=== PATIENT | male | born 1990 | race Caucasian/White ===

== ENCOUNTER 2019-04-16 01:01 | Emergency (ER) | payer OTHER ==
[~2019-04-16] VITALS: Ht 190.5 cm; Wt 81.6 kg
[2019-04-16 01:10] VITALS: BP 135/86
--- NOTE | 2019-04-16 01:10 | NUR ---
ED Nurse Note: Patient walked in to ED from work d/t left pinky finger laceration caused by broken champagne flute. Patient aao x 4 and ambulatory. Patient c/o pain 03/25. No acute distress noted during assessment.
[2019-04-16] MEDS ORDERED: Tetanus/Diptheria/Pertussis IM ONE (01:15)
--- NOTE | 2019-04-16 01:18 | Emergency Room Report ---
History of Present Illness General Chief Complaint: Laceration Source: Patient Present Illness HPI Disclaimer: Please note that this report is being documented using [employer] technology. This can lead to erroneous entry secondary to incorrect interpretation by the dictating instrument. HPI: 28-year-old [id number] male presents for evaluation of laceration to the left pinky finger. He works as a drink waiter and a champagne flute accidentally broken his hand. He sustained 2 small lacerations over the dorsum of his left pinky finger. Does not have a foreign body sensation. Able to flex and extend the digits. Bleeding controlled with pressure. Cannot recall last tetanus. No other injury sustained. Allergies: Coded Allergies: No Known Allergies (Unverified , 04/16/19) Nursing Documentation-[facility] Past Medical History: No Stated History Review of Systems All Other Systems: negative except mentioned in HPI Physical Exam Vital Signs Date Time Temp Pulse Resp B/P (MAP) Pulse Ox O2 Delivery O2 Flow Rate FiO2 04/16/19 01:06 97.7 69 17 139/82 (101) 98 Room Air General: Awake and alert, no acute distress HEENT: NC/AT. EOMI. Resp: Normal work of breathing Skin: There are 2 lacerations each approximately 1.5 cm in length and semilunar over the proximal interphalangeal joint on the left pinky finger. Superficial. Hemostatic. No surrounding edema or erythema. Well approximated. MSK: Normal tone and bulk. Moving all extremities. No obvious deformity. Able to flex and extend all digits. Sensation intact to the radial ulnar aspect of all digits. No tenderness over the wrist. Nontender over his abdomen, snuffbox. Neuro: Awake and alert. Mentating appropriately Procedures Laceration/Wound Repair Laceration/Wound Repair : Consent: Verbal Wound Location: upper extremity Wound's Depth, Shape: superficial, linear Wound Length (cm): 3 Wound Explored: clean Betadine Prep?: Yes Anesthesia: 1% Lidocaine Volume Anesthetic (ccs): 7 Wound Debrided: None Wound Repaired With: sutures Suture Size/Type: 6:0, proline Number of Sutures: 7 Layer Closure?: No Sterile Dressing Applied?: Yes Patient Tolerated: Well Complications: None Medical Decision Making Diagnostic Impression: Primary Impression: Laceration ER Course 28-year-old male presents for evaluation of a laceration to the left pinky finger sustained at work when he accidentally broke a glass bottle. X-ray was performed which showed no retained foreign bodies. Tetanus was updated. The 2 superficial lacerations were each approximately 1.5 cm and sutured with total of 7 stitches using 6-0 Prolene. Wound was approximated well. Sterile dressing applied. Paperwork for his work has been filled out. He can return to full duties. Follow-up with his PMD for suture removal next week. Discussed reasons to return to the emergency department. He understands and agrees with treatment plan. Last Vital Signs Date Time Temp Pulse Resp B/P (MAP) Pulse Ox O2 Delivery O2 Flow Rate FiO2 04/16/19 01:06 97.7 69 17 139/82 (101) 98 Room Air Disposition: HOME, SELF-CARE Condition: Improved Scripts No Active Prescriptions or Reported Meds Eric Whitley MD Apr 16, 2019 01:18
--- NOTE | 2019-04-16 02:01 | NUR ---
ED Nurse Note: Xray with patient.
[2019-04-16] MEDS ORDERED: Lidocaine 1% Plain 30 ml INJ ONE (02:30)
[2019-04-16 03:03] VITALS: BP 133/75
--- NOTE | 2019-04-16 03:03 | NUR ---
ER DISCHARGE NOTE: Patient is cleared to be discharged per ERMD, pt is aox4, on room air, with stable vital signs. pt was given dc instructions, pt was able to verbalize understanding, pt id band removed. pt is able to ambulate with steady gait. pt took all belongings. pt given workers comp paperwork. pt stable upon discharge.
--- NOTE | 2019-04-16 03:37 | Diagnostic Imaging Report ---
EXAM: XR Left Hand Complete, 3 or More Views CLINICAL HISTORY: INJ TECHNIQUE: Frontal, lateral and oblique views of the left hand. COMPARISON: No relevant prior studies available. FINDINGS: Bones/joints: Unremarkable. No acute fracture. No dislocation. Soft tissues: Unremarkable. No radiopaque foreign body. IMPRESSION: Normal left hand x-rays.
== END 2019-04-16 03:03 | disposition home or self-care (01) ==
LOC: EMR 02:00
DX: S61.217A Laceration without foreign body of left little finger without damage to nail, initial encounter (principal); Z23 Encounter for immunization; W26.9XXA Contact with unspecified sharp object(s), initial encounter; Y92.9 Unspecified place or not applicable; Y99.0 Civilian activity done for income or pay
CPT/HCPCS: 12002; 73130; 90471; 90715; 99283; J2001